=== PATIENT | female | born 1940 | race Caucasian/White ===

== ENCOUNTER 2020-03-23 18:06 | Emergency (ER) | payer MEDICARE, SELFPAY ==
--- NOTE | ~2020-03-23 | XR_ITS ---
EXAMINATION: XR chest 2V DATE: 03/23/2020 19:52 INDICATION: Altered mental status TECHNIQUE: PA and lateral views of the chest are obtained. COMPARISON: 02/05/2019 FINDINGS: The lungs are free of acute opacities. There is no pleural effusion or pneumothorax. The ca rdiomediastinal silhouette is normal. There is moderate thoracic spondylosis. Surgical clips in the r ight upper quadrant are likely from prior cholecystectomy. IMPRESSION: 1. No acute cardiopulmonary abnormality. Reviewed, dictated and finalized at location A.
--- NOTE | ~2020-03-23 | CT_ITS ---
EXAMINATION: CT brain wo con INDICATION: Acute onset of confusion COMPARISON: None TECHNIQUE: Standard unenhanced head CT. The dose-length product (DLP) was 605.33 mGy-cm. The mA was a djusted according to patient size. Iterative reconstruction technique was employed. FINDINGS: There is no intracranial hemorrhage, acute infarction, or abnormal mass lesion. The ventric les are normal. There is no abnormal mass effect or midline shift. The ramirez-white matter differentiat ion is normal. The basal cisterns are patent. The orbits are normal. Intracranial calcified cerebral atherosclerosis is noted. The paranasal sinuses, mastoids and calvarium are normal. IMPRESSION: 1. No acute intracranial abnormality. Reviewed, dictated and finalized at location A.
[2020-03-23 18:22] VITALS: BP 185/91; PULSE 66; RESP 20; TEMP 37.3; O2SAT 100
--- NOTE | 2020-03-23 18:31 | ECG_ITS ---
Measurements Intervals [place] Rate: 74 P: 17 SC: 136 QRS: 44 QRSD: 82 T: 53 QT: 346 QTc: 386 Interpretive Statements SINUS RHYTHM BASELINE ARTIFACT- I, II, III, AVR, AVF NORMAL ECG Electronically Signed On 03-23-2020 20:15:06 CDT by David Adamson D.O.
[2020-03-23 18:50] LABS: Basophils Absolute Auto 0.1 K/mm3 (0.0-0.1); Basophils Percent Auto 0.5 % (0.2-1.2); Eosinophils Absolute Auto 0.1 K/mm3 (0-0.3); Eosinophils Percent Auto 1.1 % (0-4.4); Hematocrit 44.4 % (37.0-47.0); Hemoglobin 14.8 g/dL (12.0-15.0); Immature Granulocyte Absolute 0.04 K/mm3 (0.00-0.031); Immature Granulocyte Percent A 0.3 % (0-0.5); Lymphocytes Absolute Auto 3.52 K/mm3 (0.9-3.2); Lymphocytes Percent Auto 30.7 % (18.3-44.2); Mean Corpuscular HGB Conc 33.3 g/dl (32-36); Mean Corpuscular Hemoglobin 32.3 pg (26-34); Mean Corpuscular Volume 96.9 fl (80-100); Mean Platelet Volume 11.6 fl (7.4-10.4); Monocytes Absolute Auto 0.7 K/mm3 (0.1-0.6); Monocytes Percent Auto 6.2 % (2.6-8.5); Neutrophils Percent Auto 61.2 % (45.5-73.1); Platelet Count Result 219 k/mm3 (150-375); Red Blood Count 4.58 M/mm3 (4.2-5.4); Red Cell Distribution Width 13.4 % (11.5-14.5); White Blood Count 11.5 K/mm3 (4.5-10.0)
[2020-03-23 19:02] LABS: Alanine Aminotransferase 25 U/L (4-35); Albumin Level 4.4 g/dL (3.5-5.1); Alkaline Phosphatase 107 U/L (38-126); Anion Gap 11.6 mmol/L (7-16); Aspartate Amino Transferase 26 U/L (14-36); Bilirubin,Total 0.5 mg/dL (0.2-1.3); Blood Urea Nitrogen 13 mg/dL (7-17); Calcium 9.5 mg/dL (8.4-10.2); Carbon Dioxide 29 mmol/L (22-30); Chloride 105 mmol/L (98-107); Estimated CRCL calculation 61 ml/min; Estimated Glomerular Filt Rate > 60; Glucose 96 mg/dL (65-105); Potassium 4.6 mmol/L (3.4-5.0); Sodium 141 mmol/L (137-145)
--- NOTE | 2020-03-23 19:05 | PC.NURSE ---
PT REPORT GIVEN TO ANAYELI BAUER AT THIS TIME, SHE HAS ASSUMED PT CARE.
[2020-03-23 19:30] LABS: Add Urine Microscopic? YES; Appearance Urine Clear (Clear); Bacteria Urine Trace /hpf; Bilirubin Urine Negative (Negative); Blood Urine Negative (Negative); Color Urine Straw (Yellow); Glucose Urine UA Negative (Negative); Ketones Urine Negative (Negative); Leukocyte Esterase Ur 1+ LEU/UL (Negative); Mucus Urine Rare /lpf; Nitrate Urine Negative (Negative); Protein Urine Negative (Negative); RBC Urine 0-2 /hpf (0-2); Renal Epithelial Cells Urine Rare /hpf (None Seen); Squamous Epithelial Cell Urine Few /hpf (Few); Urobilinogen Urine Negative mg/dL (<2.0)
--- NOTE | 2020-03-23 20:00 | ED.AMS ---
HPI - Altered Mental Status General Chief Complaint: Altered Mental Status Stated Complaint: confusion Time Seen by Provider: 03/23/20 19:07 History of Present Illness HPI narrative: Patient is an 79-year-old female who presents ER with acute onset confusion. Occurred approximately 230 this afternoon. She had been on the phone with her daughter and then started experiencing difficulties with her memory. She cannot member that she taken a shower. She cannot member why they are having a conversation. Repeated phone calls revealed that patient had no memory of the previous phone calls. Daughter drove an hour to tile picker her mother and bring her here. She reports that not even at this time patient has short-term memory loss about conversations are currently having. Long-term memory appears intact. Patient awake alert and oriented x3 but cannot verbalize why she is in the ER. Related Data Home Medications Medication Instructions Recorded Confirmed albuterol sulfate 90 mcg/actuation 1 puff INHALATION Q4H PRN 09/07/19 aerosol inhaler aspirin 81 mg tablet,delayed 81 mg PO DAILY 09/07/19 release nabumetone 500 mg tablet 1,000 mg PO BID tablet 09/07/19 allopurinol 100 mg PO DAILY 03/23/20 carbidopa-levodopa 1 tablet PO BID 03/23/20 ezetimibe 10 mg PO DAILY 03/23/20 timolol 1 drp OPHTHALMIC (EYE) BID 03/23/20 travoprost [Travatan Z] 1 drp OPHTHALMIC (EYE) QPM 03/23/20 Allergies Allergy/AdvReac Type Severity Reaction Status Date / Time Beta-Blockers Allergy Unknown Verified 03/23/20 18:32 (Beta-Adrenergic Bloc Review of Systems Review of Systems: ROS unobtainable: Yes unobtainable due to medical condition PMFSH Past Medical History Medical History (Updated 03/23/20 @ 21:37 by Ant Bruner MD) Arthralgia Essential (primary) hypertension Hypothyroidism Mixed hyperlipidemia Sleep apnea in adult Surgical History Surgical History (Updated 03/23/20 @ 20:03 by Ant Bruner MD) History of cholecystectomy Social History Social History Smoking status: Former smoker Alcohol intake: never Exam Narrative: Exam Narrative: GENERAL: Well-appearing, well-nourished, and in no acute distress. HEAD: Normocephalic, atraumatic. CHEST: Clear to auscultation. No respiratory distress. HEART: Regular rate and rhythm. Normal peripheral pulses. ABDOMEN: Soft, nontender, nondistended. EXTREMITIES: Normal range of motion. No edema. SKIN: Warm, dry, no rash. NEURO: No upper or lower extremity drift. Ambulates with a steady gait. No dysarthria or expressive aphasia. Alert and oriented x3 but does seem to have issues with short-term memory. PSYCH: Normal mood and affect. Course Course Emergency Course: Patient now at neurologic baseline and requesting comfortably. Discussed case with Dr. Wise who is comfortable following the patient up in an outpatient basis. Patient and daughter are also comfortable with this. Discussed return precautions. Vital Signs Vital signs: Vital Signs Temperature 99.1 F 03/23/20 18:22 Pulse Rate 66 03/23/20 18:22 Respiratory Rate 20 03/23/20 18:22 Blood Pressure 185/91 H 03/23/20 18:22 Pulse Oximetry 100 03/23/20 18:22 Temperature 99.1 F 03/23/20 18:22 Pulse Rate 64 03/23/20 20:30 Respiratory Rate 16 03/23/20 20:30 Blood Pressure 173/67 H 03/23/20 20:30 Pulse Oximetry 99 03/23/20 20:30 MDM - Altered Mental Status Lab Data Result diagrams: 03/23/20 18:43 03/23/20 18:43 Labs: Lab Results 03/23/20 03/23/20 03/23/20 Range/Units 18:43 18:43 19:22 WBC 11.5 H (4.5-10.0) K/mm3 RBC 4.58 (4.2-5.4) M/mm3 Hgb 14.8 (12.0-15.0) g/dL Hct 44.4 (37.0-47.0) % MCV 96.9 (80-100) fl MCH 32.3 (26-34) pg MCHC 33.3 (32-36) g/dl RDW 13.4 (11.5-14.5) % Plt Count 219 (150-375) k/mm3 MPV 11.6 H (7.4-10.4) fl
[2020-03-23 20:30] VITALS: BP 173/67; PULSE 64; RESP 16; O2SAT 99
[2020-03-23 22:34] VITALS: BP 158/75; PULSE 70; RESP 18; O2SAT 98
--- NOTE | 2020-03-23 22:42 | PC.NURSE ---
Pt verbalize her birthday, full name, and her location upon initial assessment by this nurse. Daughter states having to repeat conversations multiple times with patient before arrival. Daughter states the behaviors of forgetfulness are not normal for her mother.
[2020-03-23 22:44] VITALS: BP 158/75; PULSE 70; RESP 18; O2SAT 98
== END 2020-03-23 22:15 | disposition home or self-care (01) ==
PROVIDERS: Emergency Medicine; Emergency Provider Emergency Medicine; PCP Family Medicine
DX: G45.4 Transient global amnesia (principal); I10 Essential (primary) hypertension; E03.9 Hypothyroidism, unspecified; E78.2 Mixed hyperlipidemia; G47.30 Sleep apnea, unspecified; Z87.891 Personal history of nicotine dependence
CPT/HCPCS: 36415; 70450; 71046; 80053; 81001; 85025; 93005; 99284

== ENCOUNTER 2020-04-11 09:33 | Outpatient (CLI) | payer MEDICARE, SELFPAY ==
--- NOTE | ~2020-04-11 | MR_ITS ---
EXAMINATION: MR brain/brain stem wo con DATE: 04/11/2020 11:11 INDICATION: Alteration of awareness. Transient ischemic attack. TECHNIQUE: Magnetic resonance imaging (MRI) of the brain and brainstem was performed without intraven ous contrast. Sequences included sagittal and axial T1-weighted FSE, axial diffusion-weighted FS EPI, axial T2*-weighted GRE, axial T2-weighted FLAIR Propeller, and axial T2-weighted Propeller. Apparent diffusion coefficient (ADC) maps were created. COMPARISON: Head CT 03/23/2020 FINDINGS: There are scattered areas of nonspecific increased T2-weighted signal intensity in the cere bral white matter, which is within normal limits for the patient's age. There is no intracranial hemo rrhage, acute infarction, or abnormal intracranial mass lesion. The ventricles are normal in size. Th e paranasal sinuses are clear. The orbits are normal. The mastoid air cells are normal. IMPRESSION: 1. Normal aging brain. Reviewed, dictated and finalized at location B. IMPRESSION: 1. Normal aging brain.
--- NOTE | ~2020-04-11 | US_ITS ---
EXAMINATION: US carotid duplex BI DATE: 04/11/2020 11:23 INDICATION: Transient cerebral ischemic attack, unspecified. TECHNIQUE: Grayscale, color Doppler, and pulsed Doppler images of the cervical carotid arteries were obtained. The degree of vessel stenosis is placed in one of the following categories: normal, <50%, 5 0-69%, >=70% but less than near-occlusion, near-occlusion, or total occlusion. Note that percent sten osis relative to normal distal artery lumen diameter is indirectly measured from velocity measurement s as described by Jerrell, et al. Radiology 2003; 229:340-346. COMPARISON: None. FINDINGS: RIGHT: The right common carotid artery (CCA) peak systolic velocity (PSV) is 126 cm/s. The right internal ca rotid artery (ICA) PSV is 108 cm/s. The right ICA end-diastolic velocity (EDV) is 23 cm/s. The right ICA/CCA PSV ratio is 0.9. Grayscale and color Doppler images yield an estimate of <50% diameter reduc tion from plaque in the ICA. There is antegrade flow in the right vertebral artery. LEFT: The left CCA PSV is 158 cm/s. The left ICA PSV is 102 cm/s. The left ICA EDV is 11 cm/s. The left ICA /CCA PSV ratio is 0.6. Grayscale and color Doppler images yield an estimate of <50% diameter reductio n from plaque in the ICA. There is antegrade flow in the left vertebral artery. IMPRESSION: 1. <50% stenosis in the right internal carotid artery. 2. <50% stenosis in the left internal carotid artery. Reviewed, dictated and finalized at location B.
== END 2020-04-11 09:34 | disposition home or self-care (01) ==
PROVIDERS: PCP Family Medicine; Visit Provider Family Medicine
DX: G45.9 Transient cerebral ischemic attack, unspecified (principal); R41.3 Other amnesia; I65.23 Occlusion and stenosis of bilateral carotid arteries
CPT/HCPCS: 70551; 93880

== ENCOUNTER 2020-04-21 14:29 | Outpatient (CLI) | payer MEDICARE, SELFPAY ==
--- NOTE | 2020-04-21 14:52 | ECHO_ITS ---
Patient Info Name: Lucy Flood Age: 79 years : 1940 Gender: Female Ht: 64 in Wt: 205 lbs BSA: 2.09 m2 HR: 76 bpm BP: 178 / 86 mmHg Technical Quality: Good Exam Date: 04/21/2020 2:56 PM Exam Location: [facility] [place] Patient Status: Outpatient Admit Date: 04/21/2020 Staff Ordering Physician: Zay Berg MD Regulatory Assistant: Dorcas Preciado RDCS Attending Provider: Zay Berg MD Referring Physician: Morena RODRIGUEZ; Exam Type: CA echo doppler color flow Study Info Indications G45.9 - Transient cerebral ischemic attack, unspecified Complete two-dimensional, color flow and Doppler transthoracic echocardiogram is performed. Summary 1. Left ventricular chamber dimension is normal. 2. Left ventricular systolic function is normal, estimated at 60-65%. 3. The left ventricular diastolic function is grade II diastolic dysfunction. 4. E/e' 15 is elevated. 5. There is trace mitral valve regurgitation. 6. No pulmonary hypertension, estimated pulmonary arterial systolic pressure is 23 mmHg. Left Ventricle E/e' 15 is elevated. Left ventricular chamber dimension is normal. Left ventricular systolic function is normal, estimated at 60-65%. The left ventricular diastolic function is grade II diastolic dysfunction. Right Ventricle Right ventricular chamber dimension is normal. Right ventricular systolic function is normal. Left Atria Left atrial chamber dimension is normal. Right Atria Right atrial chamber dimension is normal. Aortic Valve The aortic valve is trileaflet. There is no aortic valve stenosis. There is no aortic valve regurgitation. Pulmonic Valve There is no pulmonic regurgitation. Mitral Valve There is no mitral valve stenosis. There is trace mitral valve regurgitation. Tricuspid Valve There is no tricuspid valve regurgitation. No pulmonary hypertension, estimated pulmonary arterial systolic pressure is 23 mmHg. Pericardium/Pleural There is no pericardial effusion. Inferior Vena Cava Normal inferior vena cava with >50% collapse upon inspiration consistent with normal right atrial pressure, 5 mmHg. Aorta The aortic root size at the sinus of Valsalva is normal. Left Ventricular Outflow Tract Name Value Normal LVOT 2D LVOT Diameter 2.0 cm LVOT Doppler LVOT Peak Gradient 5 mmHg LVOT Mean Gradient 2 mmHg LVOT VTI 23 cm LVOT VTI/AV VTI Ratio 0.7 LVOT Stroke Volume 71 ml LVOT CO 13.1 l/min LVOT CI 6.3 l/min/m2 Pulmonic Valve Name Value Normal PV Doppler PV Peak Gradient 4 mmHg Mitral Valve
== END 2020-04-21 14:30 | disposition home or self-care (01) ==
PROVIDERS: PCP Family Medicine; Visit Provider Family Medicine
DX: G45.9 Transient cerebral ischemic attack, unspecified (principal); R41.3 Other amnesia
CPT/HCPCS: 93306

== ENCOUNTER 2020-07-19 09:55 | Outpatient (CLI) | payer MEDICARE, SELFPAY ==
--- NOTE | ~2020-07-19 | NM_ITS ---
EXAMINATION: NM stress w perf spect multi DATE: 07/19/2020 12:32 INDICATION: Dyspnea on exertion. TECHNIQUE: Rest images were obtained following intravenous administration of 9.6 mCi Tc99m tetrofosmi n (Yobble). The patient performed an exercise activity. At peak exercise, 29.0 mCi Tc99m tetrofosmin (Myoview) was administered intravenously, and stress images were obtained. Data was reconstructed in to short axis and horizontal and vertical long axis SPECT images. Gated SPECT images were also obtain ed. COMPARISON: None. FINDINGS: There is no definite reversible or fixed perfusion abnormality to suggest ischemia or infar ction. There is no segmental wall motion abnormality. Left ventricular ejection fraction measures > 70%. IMPRESSION: 1. No definite ischemia or infarct. 2. Normal left ventricular ejection fraction measuring >70%. Reviewed, dictated and finalized at location A. HER PLUG
--- NOTE | 2020-07-19 11:28 | EST_ITS ---
Patient Info Name: Lucy Flood Age: 79 years : 1940 Gender: Female Ht: 64 in Wt: 204 lbs BSA: 2.08 m2 Technical Quality: Good Exam Date: 07/19/2020 11:31 AM Exam Location: [facility] Stress Patient Status: Outpatient Admit Date: 07/19/2020 Staff Ordering Physician: Zay Berg MD Attending Provider: Zay Berg MD Exercise Technologist: Noble Ramirez RDCS, RT Nurse: MARIS BESS Exam Type: CA stress test treadmill w NM Study Info A nuclear stress test was performed. Summary 1. Negative treadmill stress test for ischemia. 2. Somewhat decreased exercise tolerance for age. 3. Severely hypertensive blood pressure response to exercise. 4. Please see nuclear medicine report. Protocol: [facility] Stress ECG Details Stage: REST Duration (min): 1 min : 5 sec Speed (mph): 0.0 Grade (%): 0 HR (bpm): 68 SBP (mmHg): 152 DBP (mmHg): 70 METS: --- Stage: REST Duration (min): 12 min : 30 sec Speed (mph): 0.0 Grade (%): 0 HR (bpm): 90 SBP (mmHg): 152 DBP (mmHg): 70 METS: --- Stage: STAGE 1 Duration (min): 1 min : 0 sec Speed (mph): 1.7 Grade (%): 10 HR (bpm): 108 SBP (mmHg): 152 DBP (mmHg): 70 METS: --- Stage: STAGE 1 Duration (min): 2 min : 0 sec Speed (mph): 1.7 Grade (%): 10 HR (bpm): 127 SBP (mmHg): 152 DBP (mmHg): 70 METS: --- Stage: STAGE 1 Duration (min): 3 min : 0 sec Speed (mph): 1.7 Grade (%): 10 HR (bpm): 138 SBP (mmHg): 239 DBP (mmHg): 109 METS: --- Stage: STAGE 2 Duration (min): 0 min : 29 sec Speed (mph): 2.5 Grade (%): 12 HR (bpm): 142 SBP (mmHg): 239 DBP (mmHg): 109 METS: --- Stage: RECOVERY Duration (min): 0 min : 30 sec Speed (mph): 0.0 Grade (%): 0 HR (bpm): 138 SBP (mmHg): 239 DBP (mmHg): 109 METS: --- Stage: RECOVERY Duration (min): 1 min : 30 sec Speed (mph): 0.0 Grade (%): 0 HR (bpm): 125 SBP (mmHg): 217 DBP (mmHg): 103 METS: --- Stage: RECOVERY Duration (min): 2 min : 30 sec Speed (mph): 0.0 Grade (%): 0 HR (bpm): 102 SBP (mmHg): 217 DBP (mmHg): 103 METS: --- Stage: RECOVERY Duration (min): 3 min : 30 sec Speed (mph): 0.0 Grade (%): 0 HR (bpm): 98 SBP (mmHg): 245 DBP (mmHg): 84 METS: --- Stage: RECOVERY Duration (min): 4 min : 30 sec Speed (mph): 0.0 Grade (%): 0 HR (bpm): 93 SBP (mmHg): 245 DBP (mmHg): 84 METS: --- Stage: RECOVERY Duration (min): 5 min : 30 sec Speed (mph): 0.0 Grade (%): 0 HR (bpm): 90 SBP (mmHg): 188 DBP (mmHg): 80 METS: --- Stage: RECOVERY Duration (min): 6 min : 30 sec Speed (mph): 0.0 Grade (%): 0 HR (bpm): 93 SBP (mmHg): 188 DBP (mmHg): 80 METS: --- Stage: RE
== END 2020-07-19 09:56 | disposition home or self-care (01) ==
PROVIDERS: PCP Family Medicine; Visit Provider Family Medicine
DX: R06.02 Shortness of breath (principal); I10 Essential (primary) hypertension
CPT/HCPCS: 78452; 93017; A9502